=== PATIENT | male | born 1990 ===

== ENCOUNTER 2022-12-11 12:34 | Inpatient (IN) ==
[2022-12-11 13:58] LABS: Basophils # 0.1 10*3/uL (0.0-0.2); Basophils % 0.9 % (0.0-0.8); Eosinophils # 0.5 10*3/uL (0.0-0.87); Eosinophils % 6.7 % (0.00-10.9); Hematocrit 38.7 VOL% (42.0-52.0); Hemoglobin 12.4 GM/DL (14.0-18.0); Immature Granulocytes % 0.6 %; Immature Granulocytes Absolute 0.05 #; Lymphocytes # 1.4 10*3/uL (1.4-4.0); Lymphocytes % 17.5 % (21.2-54.2); Mean Corpuscular Volume 86.2 FL (87-102); Mean Platelet Volume 8.5 FL (9.6-12.0); Monocytes # 0.5 10*3/uL (0.11-0.8); Monocytes % 6.5 % (1.7-12.7); Neutrophils % 67.8 % (38.7-73.9); Platelet Count 493 T/CUMM (130-400); Red Blood Count 4.49 MC/CUMM (3.8-5.5); Red Cell Distribution Width 15.7 % (9.3-17.3); White Blood Count 7.96 T/CUMM (4-12)
[2022-12-11 14:17] LABS: Calcium 8.7 MG/DL (8.5-10.1); Osmolality,Calculated 279.4 MOS/KG (273-304); Potassium 3.9 MMOL/L (3.5-5.1)
[2022-12-11 14:31] LABS: RBC,Urine 11 /HPF (0-4); Squamous Epithelial Cell,Urine Occasional /HPF (0-10)
[2022-12-11 14:32] LABS: Bilirubin,Urine Negative (Negative); Blood, Urine Trace mg/dL (Negative); Glucose,Urine (UA) Negative (Negative); Ketones,Urine Negative (Negative); Nitrite,Urine Negative (Negative); Protein,Urine Negative (Negative); Urine Appearance Clear (Clear); Urine Color Yellow (Yellow); Urine Specific Gravity >= 1.030 (1.001-1.035); Urine Urobilinogen 0.2 eU/dL (<2.0)
[2022-12-11] MEDS ORDERED: MEROPENEM 1,000 MG in SODIUM CHLORIDE 0.9% 100 ML IV ONE (15:21)
[2022-12-11] MEDS ORDERED: ACETAMINOPHEN 325 MG TABLET PO PRN (15:34)
[2022-12-11] MEDS ORDERED: DOCUSATE SODIUM 100 MG CAPSULE PO PRN (15:34)
[2022-12-11] MEDS ORDERED: ONDANSETRON 4 MG/2 ML VIAL IV PRN (15:34)
[2022-12-11] MEDS ORDERED: GLUCAGON 1 MG VIAL IM PRN (15:34)
[2022-12-11] MEDS ORDERED: DEXTROSE 10% 250 ML BAG IV PRN (15:56)
[2022-12-11] MEDS: INSULIN LISPRO 100 UNIT/ML SUBCUT SCH ×2 (17:02→23:50)
[2022-12-11] MEDS: LEVOFLOXACIN INJ 750 MG/150 ML PREMIX IV SCH (17:39)
[2022-12-11] MEDS: MORPHINE 2 MG/1 ML SYRINGE IV PRN (21:58)
[2022-12-11] MEDS: cefTRIAXone 1,000 MG in SODIUM CHLORIDE 0.9% 100 ML IV SCH (22:00)
[2022-12-11] MEDS: TAMSULOSIN 0.4 MG CAPSULE PO SCH (23:15)
[2022-12-12] MEDS: MORPHINE 2 MG/1 ML SYRINGE IV PRN (01:37)
[2022-12-12 05:55] LABS: Basophils # 0.1 10*3/uL (0.0-0.2); Basophils % 0.6 % (0.0-0.8); Eosinophils # 0.7 10*3/uL (0.0-0.87); Eosinophils % 7.9 % (0.00-10.9); Hematocrit 37.1 VOL% (42.0-52.0); Hemoglobin 11.9 GM/DL (14.0-18.0); Immature Granulocytes % 0.5 %; Immature Granulocytes Absolute 0.04 #; Lymphocytes # 1.7 10*3/uL (1.4-4.0); Lymphocytes % 20.3 % (21.2-54.2); Mean Corpuscular HGB Conc 32.1 GM/DL (32-36); Mean Corpuscular Volume 85.7 FL (87-102); Mean Platelet Volume 8.6 FL (9.6-12.0); Monocytes # 0.7 10*3/uL (0.11-0.8); Monocytes % 8.4 % (1.7-12.7); Neutrophils % 62.3 % (38.7-73.9); Platelet Count 499 T/CUMM (130-400); Red Blood Count 4.33 MC/CUMM (3.8-5.5); Red Cell Distribution Width 15.7 % (9.3-17.3); White Blood Count 8.24 T/CUMM (4-12)
[2022-12-12 06:23] LABS: Calcium 8.7 MG/DL (8.5-10.1); Osmolality,Calculated 280.3 MOS/KG (273-304); Potassium 4.2 MMOL/L (3.5-5.1)
[2022-12-12] MEDS: INSULIN LISPRO 100 UNIT/ML SUBCUT SCH (07:59)
[2022-12-12] MEDS: PANTOPRAZOLE 40 MG TABLET PO SCH (08:23)
[2022-12-12] MEDS: NICOTINE 21 MG/24 HR PATCH TRANSDERM SCH (09:07)
[2022-12-12] MEDS: LEVOFLOXACIN INJ 750 MG/150 ML PREMIX IV SCH (15:20)
[2022-12-12] MEDS: KETOROLAC 30 MG/1 ML VIAL IV SCH ×2 (17:30→23:19)
[2022-12-12] MEDS: cefTRIAXone 1,000 MG in SODIUM CHLORIDE 0.9% 100 ML IV SCH (20:42)
[2022-12-12] MEDS: TAMSULOSIN 0.4 MG CAPSULE PO SCH (20:42)
[2022-12-13] MEDS: KETOROLAC 30 MG/1 ML VIAL IV SCH ×4 (04:14→23:22)
[2022-12-13 05:25] LABS: Basophils # 0.1 10*3/uL (0.0-0.2); Basophils % 0.7 % (0.0-0.8); Eosinophils # 0.6 10*3/uL (0.0-0.87); Eosinophils % 8.7 % (0.00-10.9); Hematocrit 36.4 VOL% (42.0-52.0); Hemoglobin 11.4 GM/DL (14.0-18.0); Immature Granulocytes % 0.5 %; Immature Granulocytes Absolute 0.04 #; Lymphocytes % 26.8 % (21.2-54.2); Mean Corpuscular HGB Conc 31.3 GM/DL (32-36); Mean Corpuscular Volume 85.2 FL (87-102); Mean Platelet Volume 8.5 FL (9.6-12.0); Monocytes # 0.7 10*3/uL (0.11-0.8); Neutrophils % 54.3 % (38.7-73.9); Platelet Count 492 T/CUMM (130-400); Red Blood Count 4.27 MC/CUMM (3.8-5.5); Red Cell Distribution Width 15.7 % (9.3-17.3); White Blood Count 7.36 T/CUMM (4-12)
[2022-12-13 05:47] LABS: Osmolality,Calculated 281.4 MOS/KG (273-304); Potassium 3.9 MMOL/L (3.5-5.1)
[2022-12-13] MEDS: PANTOPRAZOLE 40 MG TABLET PO SCH (08:57)
[2022-12-13] MEDS: NICOTINE 21 MG/24 HR PATCH TRANSDERM SCH (09:12)
[2022-12-13] MEDS: LEVOFLOXACIN INJ 750 MG/150 ML PREMIX IV SCH (16:40)
[2022-12-13] MEDS: cefTRIAXone 1,000 MG in SODIUM CHLORIDE 0.9% 100 ML IV SCH (21:41)
[2022-12-13] MEDS: TAMSULOSIN 0.4 MG CAPSULE PO SCH (21:41)
[2022-12-14] MEDS: KETOROLAC 30 MG/1 ML VIAL IV SCH ×2 (04:30→12:14)
[2022-12-14 05:46] LABS: Basophils # 0.1 10*3/uL (0.0-0.2); Basophils % 0.7 % (0.0-0.8); Eosinophils # 0.6 10*3/uL (0.0-0.87); Eosinophils % 7.6 % (0.00-10.9); Hematocrit 36.9 VOL% (42.0-52.0); Hemoglobin 11.7 GM/DL (14.0-18.0); Immature Granulocytes % 2.3 %; Immature Granulocytes Absolute 0.19 #; Lymphocytes # 1.4 10*3/uL (1.4-4.0); Lymphocytes % 17.3 % (21.2-54.2); Mean Corpuscular HGB Conc 31.7 GM/DL (32-36); Mean Corpuscular Volume 85.6 FL (87-102); Mean Platelet Volume 8.4 FL (9.6-12.0); Monocytes # 0.6 10*3/uL (0.11-0.8); Neutrophils % 65.1 % (38.7-73.9); Platelet Count 502 T/CUMM (130-400); Red Blood Count 4.31 MC/CUMM (3.8-5.5); Red Cell Distribution Width 15.6 % (9.3-17.3); White Blood Count 8.17 T/CUMM (4-12)
[2022-12-14 05:56] LABS: Calcium 8.9 MG/DL (8.5-10.1); Osmolality,Calculated 282.3 MOS/KG (273-304)
[2022-12-14] MEDS: NICOTINE 21 MG/24 HR PATCH TRANSDERM SCH ×2 (09:35→09:39)
[2022-12-14] MEDS: PANTOPRAZOLE 40 MG TABLET PO SCH (09:38)
[2022-12-14 14:31] VITALS: BP 127/70
== END 2022-12-14 16:32 | disposition home or self-care (01) | DRG 728 ==
LOC: N.ED 12:34 → SUATTDRO 16:24 → N.EDINP 16:24 → N.3E 12-12 01:15
PROVIDERS: ADMIT Internal Medicine; ATTEND Hospitalist